=== PATIENT | male | born 1975 | race Caucasian/White ===

== ENCOUNTER 2022-04-28 09:26 | Emergency (ER) | payer MEDICAID ==
[~2022-04-28] VITALS: Ht 170.2 cm; Wt 111.6 kg
[2022-04-28 09:32] VITALS: BP 159/89
--- NOTE | 2022-04-28 09:53 | NUR ---
46YO MALE PT C/O SHARP/THROBBING 7/10 RECTAL PAIN AND BLEEDING XTODAY. REPORTS "HEMORRHOIDS" X5DAYS AND SUDDEN ONSET OF BLEEDING AT 1AM TODAY . NOTES BRIGHT RED BLEEDING. PRESENTS WITH EXTERNAL HEMORROID , MILD ACTIVE BLEEDING AND TENDER TO TOUCH. DENIES TAKING MEDICATION , N/V/D, FEVR OR CHILLS. PT AAOX4, RESPIRATIONS EVEN AND UNLABORED. STANDING BEDSIDE FOR COMFORT. HX:DENIES NKA
--- NOTE | 2022-04-28 10:36 | NUR ---
pt ambulated to restroom
--- NOTE | 2022-04-28 10:38 | NUR ---
pt ambulated back to room
--- NOTE | 2022-04-28 10:49 | NUR ---
MD CAGLE AT BEDSIDE FOR EVALUATION
[2022-04-28] MEDS ORDERED: LIDOCAINE MPF 1% 5 ML ONE (10:58)
[2022-04-28] MEDS ORDERED: LIDOCAINE MPF 1% 10 MG/ML VIAL INJ ONE (11:00)
[2022-04-28] MEDS ORDERED: LIDO5CRE19 TP (11:49)
[2022-04-28] MEDS ORDERED: HYDR-2734 TP (11:49)
[2022-04-28] MEDS ORDERED: DOCU-2 PO (11:49)
--- NOTE | 2022-04-28 11:55 | NUR ---
Note undone in EDM - 04/28/22 at 1206 by PHSEP Patient discharged with v/s stable. Written and verbal after care instructions FOR HEMORRHOIDS given and explained. Patient alert, oriented and verbalized understanding of instructions. Ambulatory with steady gait. All questions addressed prior to discharge. ID band removed. Patient advised to follow up with PMD. Rx of DOCUSATE SODIUM, HYDROCORTISONE QAND LIDOCAINE given. Opportunity to ask questions provided and answered.
[2022-04-28 11:58] VITALS: BP 140/89
--- NOTE | 2022-04-28 11:58 | NUR ---
Patient discharged with v/s stable. Written and verbal after care instructions FOR HEMORRHOIDS given and explained. Patient alert, oriented and verbalized understanding of instructions. Ambulatory with steady gait. All questions addressed prior to discharge. ID band removed. Patient advised to follow up with PMD. Rx of DOCUSATE SODIUM, HYDROCORTISONE QAND LIDOCAINE given. Opportunity to ask questions provided and answered.
== END 2022-04-28 11:58 | disposition home or self-care (01) ==
LOC: MED 09:26
DX: K64.4 Residual hemorrhoidal skin tags (principal)
CPT/HCPCS: 10060; 99283; J2001